=== PATIENT | male | born 1995 | race Two or more races ===

== ENCOUNTER 2016-07-02 09:31 | Emergency (ER) | payer SELFPAY ==
--- NOTE | ~2016-07-02 | ER ---
PATIENT'S NAME: FOREIGN HERNANDEZ [facility] AGE: 21 Y [address] ROOM: [place] [address] LOCATION: [facility] ADMIT DATE: 07/02/2016 ER/Outpatient Report DISCHARGE DATE: 07/02/2016 FAMILY PHYSICIAN: PHYSICIAN, NO ATTENDING PHYSICIAN: Tierney Gastelum TIME OF ARRIVAL: 0931 hours. TIME SEEN: 1008 hours. IDENTIFICATION: A 21-year-old male. CHIEF COMPLAINT: Sores on his left leg. HISTORY OF PRESENT ILLNESS: The patient had a blister on his left lower extremity. He has had no drainage from it, but increase in redness, and then he has another spot that is more on the lateral aspect, and he has a spot over on the medial aspect as well that has started up. He has had previous areas drained. PAST MEDICAL HISTORY: ALLERGIES: NO KNOWN DRUG ALLERGIES. MEDICATIONS: No current medications. MEDICAL PROBLEMS: Cystic acne. PRIOR SURGERIES: He has had prior left leg surgery on the lateral aspect. He has had prior I and D of both axilla per Dr. Phoenix, and then on the left side of his face that has been I and D'd. SOCIAL HISTORY: The patient lives in [place]. He does not have a regular physician. Tobacco use: One-half pack per day. Alcohol use: Denies. He does use marijuana. PATIENT'S NAME: FOREIGN HERNANDEZ [facility] AGE: 21 Y [address] ROOM: [place] [address] LOCATION: [facility] ADMIT DATE: 07/02/2016 ER/Outpatient Report DISCHARGE DATE: 07/02/2016 FAMILY PHYSICIAN: PHYSICIAN, NO ATTENDING PHYSICIAN: Tierney Gastelum REVIEW OF SYSTEMS: Cystic acne and what looks like maybe hidradenitis suppurativa. He has had no prior visits here. FAMILY HISTORY: No pertinent family history. REVIEW OF SYSTEMS: All systems reviewed. He has had no fever or chills. No nausea or vomiting. All systems reviewed and are negative other than what is noted in the HPI. PHYSICAL EXAMINATION: VITAL SIGNS: Height 6 feet 0 inches, weight 104 kg, blood pressure 147/76, pulse 80, respirations 14, temperature 98.8, and saturation is 98%. GENERAL: A 21-year-old male, in no acute distress. HEENT: Head: Normocephalic, atraumatic. Ears: TMs translucent, both ears. Nose: Mucosa pink, no lesions. Mouth: No lesions. Pharynx: Benign. NECK: Supple. No lymphadenopathy. LUNGS: Clear to auscultation. HEART: Regular rate and rhythm. ABDOMEN: Bowel sounds present. Soft and nondistended. No hepatosplenomegaly. No palpable masses. Nontender. SKIN: The patient has multiple scarred areas from cystic acne, also from previous I and D of his left face, bilateral axilla, and right lateral leg. The patient has erythema and cellulitis with kind of more of a blistered area. No abscess. Nothing to drain on the anterolateral aspect of the leg. Then, medially, he has another smaller lesion. Again, nothing to drain. No other erythema is noted. LABORATORY DATA: I did obtain lab work to include a white count of 15,000 with normal differential, sedimentation rate of 52, and a CRP of 6.98. IMPRESSION: Cellulitis. PLAN: Rocephin 1 g IM. Bactrim DS b.i.d. for 7 days. Follow up for recheck tomorrow, follow up sooner if any problems or concerns, fever, chills, increasing redness, or problems. The patient and mother understand and agree, and all questions have been answered. PATIENT'S NAME: FOREIGN HERNANDEZ [facility] AGE: 21 Y [address] ROOM: [place], [place] [address] LOCATION: [facility] ADMIT DATE: 07/02/2016 ER/Outpatient Report DISCHARGE DATE: 07/02/2016 FAMILY PHYSICIAN: PHYSICIAN, NO ATTENDING PHYSICIAN: Tierney Gastelum MD CAR/modl /[id number] d: 07/02/16 1526 t: 07/05/16 1423, OUTPATIENT REPORT
[2016-07-02 10:33] LABS: BASOPHIL # 0.1 K/uL (0.0-0.2); BASOPHIL % 0.7 %; EOSINOPHIL # 0.5 K/uL (0.0-0.5); EOSINOPHIL % 3.5 %; HEMATOCRIT 42.9 % (37.0-53.0); HEMOGLOBIN 13.9 g/dL (12.0-17.0); IMMATURE GRANULOCYTE # 0.1 K/uL (0.0-0.3); IMMATURE GRANULOCYTE % 0.3 %; LYMPHOCYTE # 2.6 K/uL (0.8-4.0); LYMPHOCYTE % 17.5 %; MCH 28.5 pg (27.0-34.0); MCHC 32.4 gm/dL (32.0-36.5); MCV 87.9 fl (83.0-98.0); MONOCYTE % 6.6 %; MPV 9.1 fl (9.4-12.4); NEUTROPHIL # (ANC) 10.7 K/uL (1.4-9.0); NEUTROPHIL % 71.4 %; NRBC % 0 /100WBC (0-0.00); PLATELET COUNT 373 K/uL (150-450); RBC 4.88 M/uL (4.00-6.00); RDW-CV 13.4 % (11.9-14.6)
== END 2016-07-02 11:20 | disposition disaster alternative care site (69) ==
LOC: GMED 09:31
PROVIDERS: Family Medicine
DX: L03.116 Cellulitis of left lower limb (principal)
CPT/HCPCS: J0696